=== PATIENT | female | born 1980 | race Caucasian/White ===

== ENCOUNTER 2017-02-19 19:39 | Emergency (ER) | payer OTHER ==
[2017-02-19 20:24] VITALS: BP 124/78
--- NOTE | 2017-02-19 20:53 | UC ---
Hand/Wrist HPI - HPI Summary HPI Summary: Noticed pain in R 1st fingernail this evening, when she inspected the area it looked like there was a PW and discoloration in the nail. Does not recall any crush injury or penetrating injury. - History Of Current Complaint Chief Complaint: UCForeignBody Stated Complaint: FB IN FINGER Time Seen by Provider: 02/19/17 20:15 Hx Obtained From: Patient Hx Last Menstrual Period: February 12 ?: No Onset/Duration: Lasting Hours Severity Initially: Mild Severity Currently: Mild Character Of Pain: Sharp, Throbbing Aggravating Factor(s): Other - touch Alleviating: Rest Associated Signs And Symptoms: Positive: Negative - Allergies/Home Medications Allergies/Adverse Reactions: Allergies Allergy/AdvReac Type Severity Reaction Status Date / Time Penicillins Allergy Mild Rash Verified 02/19/17 20:24 Sodium Lauryl Sulfate Allergy Mild See Comment Verified 02/19/17 20:24 PMH/Surg Hx/FS Hx/Imm Hx Previously Healthy: Yes - Surgical History Surgical History: Yes Surgery Procedure, Year, and Place: 1993 T&A - Family History Known Family History: Positive: Hypertension - Social History Lives: With Family Alcohol Use: None Substance Use Type: None Smoking Status (MU): Never Smoked Tobacco - Immunization History Most Recent Influenza Vaccination: 05/25/15 Most Recent Tetanus Shot: 05/25/15 Most Recent Pneumonia Vaccination: n/a Review of Systems Constitutional: Negative Skin: Other - PW R 1st fingernail Eyes: Negative ENT: Negative Respiratory: Negative Cardiovascular: Negative Gastrointestinal: Negative Genitourinary: Negative Motor: Negative Neurovascular: Negative Musculoskeletal: Negative Neurological: Negative Psychological: Negative All Other Systems Reviewed And Are Negative: Yes Physical Exam Triage Information Reviewed: Yes Appearance: Well-Appearing, No Pain Distress, Well-Nourished Vital Signs: Initial Vital Signs Temp 97.7 F 02/19/17 20:17 Pulse 87 02/19/17 20:17 Resp 14 02/19/17 20:17 BP 124/78 02/19/17 20:17 Pulse Ox 100 02/19/17 20:17 Vital Signs Reviewed: Yes Eye Exam: Normal Eyes: Positive: Conjunctiva Clear ENT Exam: Normal ENT: Positive: Normal ENT inspection, Hearing grossly normal, Pharynx normal, TMs normal Dental Exam: Normal Neck exam: Normal Neck: Positive: Supple, Nontender, No Lymphadenopathy Respiratory Exam: Normal Respiratory: Positive: Chest non-tender, Lungs clear, Normal breath sounds, No respiratory distress, No accessory muscle use Cardiovascular Exam: Normal Cardiovascular: Positive: RRR, No Murmur Musculoskeletal Exam: Normal Neurological Exam: Normal Neurological: Positive: Alert Psychological Exam: Normal Skin Exam: Other - pinpoint open area on R thumbnail, minimal discoloration beneath it. Gradually gouged away keratinous portion of nail, removed 2 specks of metallic FB, stopped when no more FB was seen and pt discomfort became too great. Pt still has slight sharp sensation when pressing on the nail, but no visible FB. Hand/Wrist Course/Dx - Differential Dx/Diagnosis Provider Diagnoses: FB removal from R thumb nail bed. possible FB retained in R thumb nail bed Discharge - Discharge Plan Condition: Stable Disposition: HOME Patient Education Materials: Soft Tissue Foreign Body (ED) Referrals: Hugn Lee MD [Primary Care Provider] - Additional Instructions: Though we were able to get some tiny bits of metallic foreign body out of your fingernail, there may be some retained. Most metal can stay in body tissues without a problem for long periods of time. You should return if you have increasing pain, redness, or streaking up the finger.
== END 2017-02-19 20:57 | disposition home or self-care (01) ==
LOC: UCEAST 19:39
DX: S60.351A Superficial foreign body of right thumb, initial encounter (principal); W45.8XXA Other foreign body or object entering through skin, initial encounter
CPT/HCPCS: 10120; 99211; G0463

== ENCOUNTER 2018-01-06 07:52 | Emergency (ER) | payer OTHER ==
--- NOTE | 2018-01-06 08:05 | UC ---
Complaint Female HPI - HPI Summary HPI Summary: 37 yo female presents with vaginal itching and white/yellow discharge for the last few weeks - seems to be getting worse and more irritating. LMP was 2.5 weeks ago and was normal for her. Does not want STD testing or test today. Denies fever, chills, abdominal pain, n/v, dysuria. - History Of Current Complaint Stated Complaint: UTI Time Seen by Provider: 01/06/18 08:05 Hx Obtained From: Patient Onset/Duration: Gradual Onset Timing: Constant Severity Currently: None - Allergies/Home Medications Allergies/Adverse Reactions: Allergies Allergy/AdvReac Type Severity Reaction Status Date / Time Penicillins Allergy Hives Verified 01/06/18 08:15 Home Medications: Home Medications Control Pill 1 tab PO DAILY 01/06/18 [History] PMH/Surg Hx/FS Hx/Imm Hx - Additional Past Medical History Additional PMH: None Previously Healthy: Yes - Surgical History Surgical History: Yes Surgery Procedure, Year, and Place: 1993 T&A - Family History Known Family History: Positive: Hypertension - Social History Occupation: Employed Full-time Lives: With Family Alcohol Use: None Substance Use Type: None Smoking Status (MU): Never Smoked Tobacco - Immunization History Most Recent Influenza Vaccination: 05/25/15 Most Recent Tetanus Shot: 05/25/15 Most Recent Pneumonia Vaccination: n/a Review of Systems Constitutional: Negative Skin: Negative Respiratory: Negative Cardiovascular: Negative Gastrointestinal: Negative Genitourinary: Vaginal/Penile Itching, Vaginal/Penile Discharge Neurovascular: Negative Neurological: Negative Psychological: Negative All Other Systems Reviewed And Are Negative: Yes Physical Exam - Summary Physical Exam Summary: GENERAL: NAD. WDWN. No pain distress. SKIN: No rashes, sores, lesions, or open wounds. NECK: Supple. Nontender. No lymphadenopathy. CHEST: CTAB. No r/r/w. No accessory muscle use. Breathing comfortably and in no distress. CV: RRR. Without m/r/g. Pulses intact. Brisk cap refill. ABDOMEN: Soft. NTTP. No distention or guarding. No organomegaly. No CVA tenderness. Bowel sounds present NEURO: Alert. CN II-XII grossly intact. PSYCH: Age appropriate behavior. Pelvic exam assisted by Brandy MUSE Triage Information Reviewed: Yes Vital Signs: Vital Signs: Temp Pulse Resp BP Pulse Ox 99.8 F 91 14 116/87 97 01/06/18 08:12 01/06/18 08:12 01/06/18 08:12 01/06/18 08:12 01/06/18 08:12 Pelvic Exam: Positive: No Cerv. Motion Tender, No Masses, Discharge - Moderate Milky white and mild yellow discharge. Negative: Active Bleeding, Blood, Lesions Complaint Female Dx - Course Course Of Treatment: Suspect BV and will treat with Flagyl. Culture sent for affirm. - Differential Dx/Diagnosis Provider Diagnoses: Bacterial Vaginosis Discharge - Sign-Out/Discharge Documenting (check all that apply): Discharge/Admit/Transfer - Discharge Plan Condition: Stable Disposition: HOME Prescriptions: metroNIDAZOLE [Flagyl 500 MG TAB] 500 mg PO BID #14 tab Patient Education Materials: Bacterial Vaginosis (ED) Referrals: Hung Lee MD [Primary Care Provider] - Additional Instructions: If you develop a fever, shortness of breath, chest pain, new or worsening symptoms - please call your PCP or go to the ED. - Billing Disposition and Condition Condition: STABLE Disposition: HOME
[2018-01-06 08:15] VITALS: BP 116/87
--- NOTE | 2018-01-07 16:44 | UC ---
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 - Billing Disposition and Condition Condition: STABLE Disposition: HOME
== END 2018-01-06 08:35 | disposition home or self-care (01) ==
LOC: UCEAST 07:52
DX: B37.3 Candidiasis of vulva and vagina (principal); Z88.0 Allergy status to penicillin
CPT/HCPCS: 87480; 87510; 99212; G0463

== ENCOUNTER 2019-03-17 20:43 | Emergency (ER) | payer OTHER ==
[2019-03-17 20:59] VITALS: BP 142/89
--- NOTE | 2019-03-17 21:35 | UC ---
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 Time Seen by Provider: 03/17/19 21:14 Hx Obtained From: Patient Hx Last Menstrual Period: 1 MONTH AGO Onset/Duration: Sudden Onset Timing: Constant Initial Severity: Moderate Current Severity: Mild Pain Intensity: 3 Chest Pain Location: Discrete at: - right upper sternal border Character: Sharp/Stabbing Aggravating Factor(s): Position, Deep Breaths Alleviating Factor(s): Rest Associated Signs & Symptoms: Positive: Chest Pain - Allergy/Home Medications Allergies/Adverse Reactions: Allergies Allergy/AdvReac Type Severity Reaction Status Date / Time Penicillins Allergy Hives Verified 03/17/19 20:59 PMH/Surg Hx/FS Hx/Imm Hx Previously Healthy: Yes Endocrine History: Dyslipidemia - Surgical History Surgical History: Yes Surgery Procedure, Year, and Place: 1993 T&A - Family History Known Family History: Positive: Hypertension, Diabetes - Social History Alcohol Use: Occasionally Substance Use Type: None Smoking Status (MU): Never Smoked Tobacco - Immunization History Most Recent Influenza Vaccination: 05/25/15 Most Recent Tetanus Shot: 05/25/15 Most Recent Pneumonia Vaccination: n/a Review of Systems All Other Systems Reviewed And Are Negative: Yes Constitutional: Positive: Negative Skin: Positive: Negative Eyes: Positive: Negative ENT: Positive: Negative Respiratory: Positive: Negative Cardiovascular: Positive: Chest Pain Gastrointestinal: Positive: Negative Genitourinary: Positive: Negative Motor: Positive: Negative Neurovascular: Positive: Negative Musculoskeletal: Positive: Negative Neurological: Positive: Negative Psychological: Positive: Negative Physical Exam Triage Information Reviewed: Yes Appearance: Well-Appearing, No Pain Distress, Well-Nourished Vital Signs: Initial Vital Signs Temp 97.9 F 03/17/19 20:54 Pulse 81 03/17/19 20:54 Resp 16 03/17/19 20:54 BP 142/89 03/17/19 20:54 Pulse Ox 100 03/17/19 20:54 Vital Signs Reviewed: Yes Eyes: Positive: Conjunctiva Clear ENT: Positive: Hearing grossly normal. Negative: Nasal congestion, Nasal drainage, Tonsillar exudate, Trismus, Hoarse voice, Sinus tenderness Neck: Positive: Supple, Nontender, No Lymphadenopathy Respiratory: Positive: Lungs clear, Normal breath sounds, No respiratory distress, No accessory muscle use. Negative: Chest non-tender Cardiovascular: Positive: RRR, No Murmur. Negative: Tachycardia, Bradycardia Abdomen Description: Positive: Nontender, No Organomegaly. Negative: CVA Tenderness (R), CVA Tenderness (L) Musculoskeletal: Positive: ROM Intact, No Edema Neurological: Positive: Alert Psychological Exam: Normal Skin Exam: Normal Diagnostics - Radiology No standard instances Radiology Interpretation Completed By: ED Physician Summary of Radiographic Findings: cxr: NAD - Clinical Impression Provider Diagnosis: Chest wall pain Discharge - Sign-Out/Discharge Documenting (check all that apply): Patient Departure All imaging exams completed and their final reports reviewed: No Studies - Discharge Plan Condition: Stable Disposition: HOME Patient Education Materials: Chest Wall Pain (ED) Referrals: Hung Lee MD [Primary Care Provider] - 1 Week Additional Instructions: avoid activities that aggravate pain heat advil or aleve official CXR results pending - Billing Disposition and Condition Condition: STABLE Disposition: Home
== END 2019-03-17 21:50 | disposition home or self-care (01) ==
LOC: UCEAST 20:43
DX: R07.89 Other chest pain (principal); Z88.0 Allergy status to penicillin
CPT/HCPCS: 71046; 99212; G0463